=== PATIENT | female | born 1970 | race Caucasian/White ===

== ENCOUNTER → 2021-03-29 | Outpatient (CLI) | payer OTHER ==
[~2021-03-29] MED LIST: DEPO-PROVERA; FLONASE 0.05%50 MCG NASAL; IBUPROFEN 800800 MG PO; LEVOCETIRIZINE D5 MG PO; PROAIR RESPICL90 MCG IH; RIZATRIPTAN10 M1 PO; TROKENDI XR200 MG PO; ZOLOFT100 MG PO
== END ==
LOC: M.CT 09:31
PROVIDERS: ATTEND Nurse Practitioner Family
DX: Z13.6 Encounter for screening for cardiovascular disorders (principal); I25.10 Atherosclerotic heart disease of native coronary artery without angina pectoris